=== PATIENT | female | born 1985 | race African-American/Black ===

== ENCOUNTER 2016-12-26 18:00 | Emergency (ER) | payer BC ==
[~2016-12-26] VITALS: Ht 152.4 cm; Wt 66.4 kg
[~2016-12-26 18:00] MED LIST: LOESTRIN
[2016-12-26 19:08] LABS: HEMATOCRIT 41.6 % (36.0-46.0); MCH 29.3 PG (29.0-34.0); MCHC 33.9 G/DL (30.0-36.0); MCV 86.3 FL (83-99); RBC DIS.WIDTH-CV 12.5 % (11.8-14.6); RBC DIS.WIDTH-SD 39.7 % (39-53); RED BLOOD COUNT 4.82 M/uL (3.80-5.20); WHITE BLOOD COUNT 9.2 K/uL (4.1-10.2)
[2016-12-26 19:19] LABS: CHLORIDE 106 mEq/L (99-109); POTASSIUM 3.4 mEq/L (3.7-5.4); SODIUM 139 mEq/L (136-147)
[2016-12-26 19:21] LABS: GLUCOSE 127 mg/dL (70-99)
[2016-12-26 19:22] LABS: ANION GAP 13 MEQ/L (2-14)
[2016-12-26 19:23] LABS: TOTAL BILIRUBIN 0.5 mg/dL (0.0-1.0)
[2016-12-26 19:25] LABS: ALKALINE PHOSPHATASE 40 IU/L (3-129); GFR ESTIMATE (CALCULATED) > 59 mL/min/
[2016-12-26 19:26] LABS: UREA NITROGEN (BUN) 11 mg/dL (9-23)
[2016-12-26 19:32] LABS: LIPASE 13 U/L (1.0-51.0)
[2016-12-26 19:33] LABS: ADD MIUA? NO; BILIRUBIN NEGATIVE; BLOOD NEGATIVE; COLOR YELLOW ((YELLOW)); GLUCOSE (STRIP) NEGATIVE; KETONES 20; LEUKOCYTES NEGATIVE; NITRITE NEGATIVE; PROTEIN (STRIP) NEGATIVE; SPECIFIC GRAVITY 1.016 (1.000-1.030); UCUL ADDED? NO; UROBILINOGEN 0.2 MG/DL (0.2-1.0)
[2016-12-26 19:34] LABS: QUANTITATIVE HCG < 4.0 MIU/ML
[2016-12-26 19:35] LABS: INTERNAL CONTROL VALID? YES
[2016-12-26 19:53] LABS: MEAN PLAT.VOLUME 10.7 uM^3 (9.5-12.4); PLATELET CLUMPS PRESENT - PLATELET COUNT APPEARS ADQ.; PLATELET COUNT 267 K/uL (156-360)
[2016-12-26] MEDS ORDERED: ZOFRAN ODT4 MG PO (21:00)
[2016-12-26 22:04] VITALS: BP 110/70
== END 2016-12-26 22:15 | disposition home or self-care (01) ==
LOC: EME 18:00
PROVIDERS: Emergency Medicine
DX: K52.9 Noninfective gastroenteritis and colitis, unspecified (principal)
CPT/HCPCS: 74177; 80053; 81003; 83605; 83690; 84702; 84703; 85027; 99281; 99285; J1200; J2270; J2405; J2765; J7030